=== PATIENT | male | born 1995 | race African-American/Black ===

== ENCOUNTER 2020-02-29 10:36 | Emergency (ER) | payer SELFPAY ==
[~2020-02-29] VITALS: Ht 182.9 cm; Wt 84.5 kg
[2020-02-29 10:48] VITALS: BP 144/83
== END 2020-02-29 12:00 | disposition home or self-care (01) ==
LOC: ER 10:36
DX: Z48.00 Encounter for change or removal of nonsurgical wound dressing (principal)
CPT/HCPCS: 99281